=== PATIENT | male | born 1955 | race Caucasian/White ===

== ENCOUNTER 2023-03-22 11:51 | Inpatient (IN) | payer MEDICARE ==
[2023-03-22] MEDS ORDERED: Morphine 4 MG/ML VIAL ONE (12:50)
[2023-03-22] MEDS ORDERED: Vancomycin 1 GM VIAL ONE (12:50)
[2023-03-22 13:24] LABS: ALT (SGPT) 43 U/L (8-55); AST (SGOT) 35 U/L (5-34); Albumin 3.5 g/dL (3.4-4.8); Alkaline Phosphatase 109 U/L (40-110); Anion Gap 14 mmol/L (10-20); BUN (Urea Nitrogen) 30 mg/dL (8.4-25.7); Bilirubin, Total 0.8 mg/dL (0.2-1.2); Calc. Creatinine Clearance 0 mL/min (70-130); Calcium 9.4 mg/dL (7.8-10.44); Carbon Dioxide 26 mmol/L (23-31); Chloride 100 mmol/L (98-107); Estimated GFR 41; Globulin 4.1 g/dL (2.4-3.5); Glucose 243 mg/dL (80-115); Potassium 4.7 mmol/L (3.5-5.1); Protein, Total 7.6 g/dL (5.8-8.1); Sodium 135 mmol/L (136-145)
[2023-03-22 13:27] LABS: #Eosinphils 0.1 10x3/uL (0.0-0.5); #Monocytes 1.5 10x3/uL (0.0-1.1); #Neutrophils 9.5 10x3/uL (1.5-8.4); %Basophils 0.2 % (0.0-2.0); %Eosinophils 0.8 % (0.0-6.0); %Lymphocytes 13.9 % (18.0-47.0); %Monocytes 11.7 % (0.0-10.0); Hematocrit 41.3 % (38.8-50.0); Mean Corpuscular HGB CONC 33.9 g/dL (32.0-36.0); Mean Corpuscular Hemoglobin 31.1 pg (27.0-33.0); Mean Corpuscular Volume 91.8 fl (81.2-95.1); Mean Platelet Volume 11.2 fl (7.4-10.4); Platelet Count 224 10x3/uL (150-450); RBC Distribution Width 12.8 % (11.5-14.5)
[2023-03-22] MEDS ORDERED: Guaifenesin DM 100-10/5 ML UDCUP PO PRN (14:53)
[2023-03-22] MEDS ORDERED: Senokot S 8.6-50 MG TAB PO PRN (14:53)
[2023-03-22] MEDS ORDERED: Dextrose 5% in Water 1,000 ML IV PRN (15:18)
[2023-03-22] MEDS ORDERED: Dextrose 50% Abboject 50 ML SYRINGE SLOW IVP PRN (15:18)
[2023-03-22] MEDS ORDERED: Insulin Regular 300 UNITS/3 ML VIAL SC PRN (15:18)
[2023-03-22] MEDS ORDERED: Glucagon 1 MG/ML KIT IM PRN (15:18)
[2023-03-22] MEDS ORDERED: Piperacillin/Tazobactam 3.375 GM in Sodium Chloride 0.9% 100 ML IVPB SCH (16:00)
[2023-03-22 17:13] VITALS: BMI 30.9
[2023-03-22 17:22] LABS: Bilirubin Neg (Negative); Blood, Urine Negative (Negative); Clarity Clear (Clear); Glucose, Urine (Dipstick) 50 mg/dL (Negative); Ketone, Urine Negative (Negative); Leukocyte 500 (Negative); Nitrite Negative (Negative); Protein, Urine (Dipstick) 30 mg/dl (Neg-Trace); Specific Gravity, Urine 1.015 (1.005-1.030)
[2023-03-22] MEDS ORDERED: Vancomycin HCl 500 MG in Sodium Chloride 0.9% 100 ML IVPB SCH ×2 (17:30→20:00)
[2023-03-22 17:37] LABS: Bacteria/HPF 1+ HPF (None Seen); CAUTI Indications for Culture Fever or rigors; RBC/HPF 0-3 HPF (0-3); Squamous Epithelial 0-3 HPF (0-3); Transitional Epithelial 0-3 HPF (None Seen); WBC/HPF 21-50 HPF (0-3)
[2023-03-22 17:39] LABS: Urine Culture Reflex Yes Yes
[2023-03-22] MEDS: HYDROcodone/Acetaminophen 5/325 mg Tablet PO PRN (17:56)
[2023-03-22] MEDS: Sodium Chloride 0.9% 1,000 ML IV SCH (18:07)
[2023-03-22] MEDS ORDERED: Vancomycin (BATCH) 1.5 GM in Premix 1 BAG IVPB SCH (21:00)
[2023-03-22] MEDS ORDERED: Lantus 1000 UNITS/10 ML VIAL SC SCH (21:00)
[2023-03-22] MEDS: Famotidine 20 MG TAB PO SCH (21:25)
[2023-03-22] MEDS: Piperacillin/Tazobactam 3.375 GM in Sodium Chloride 0.9% 100 ML IVPB SCH (21:25)
[2023-03-23] MEDS: HYDROcodone/Acetaminophen 5/325 mg Tablet PO PRN ×2 (02:05→17:23)
[2023-03-23] MEDS: Piperacillin/Tazobactam 3.375 GM in Sodium Chloride 0.9% 100 ML IVPB SCH ×3 (03:27→20:01)
[2023-03-23] MEDS: Sodium Chloride 0.9% 1,000 ML IV SCH (04:06)
[2023-03-23 04:58] LABS: #Eosinphils 0.1 10x3/uL (0.0-0.5); #Monocytes 1.3 10x3/uL (0.0-1.1); #Neutrophils 8.1 10x3/uL (1.5-8.4); %Basophils 0.3 % (0.0-2.0); %Eosinophils 1.2 % (0.0-6.0); %Lymphocytes 17.1 % (18.0-47.0); %Monocytes 11.6 % (0.0-10.0); %Neutrophils 69.4 % (40.0-75.0); Hematocrit 36.7 % (38.8-50.0); Hemoglobin 12.6 g/dL (13.5-17.5); Mean Corpuscular HGB CONC 34.3 g/dL (32.0-36.0); Mean Corpuscular Hemoglobin 31.2 pg (27.0-33.0); Mean Corpuscular Volume 90.8 fl (81.2-95.1); Mean Platelet Volume 11.3 fl (7.4-10.4); Platelet Count 201 10x3/uL (150-450); RBC Distribution Width 12.8 % (11.5-14.5); Red Blood Cell (RBC) Count 4.04 10x6/uL (4.32-5.72); White Blood Cell (WBC) Count 11.6 10x3/uL (3.5-10.5)
[2023-03-23 05:03] LABS: ALT (SGPT) 34 U/L (8-55); AST (SGOT) 24 U/L (5-34); Albumin 2.8 g/dL (3.4-4.8); Alkaline Phosphatase 102 U/L (40-110); Anion Gap 14 mmol/L (10-20); BUN (Urea Nitrogen) 24 mg/dL (8.4-25.7); Bilirubin, Total 0.8 mg/dL (0.2-1.2); Calc. Creatinine Clearance 69 mL/min (70-130); Calcium 8.3 mg/dL (7.8-10.44); Carbon Dioxide 21 mmol/L (23-31); Chloride 103 mmol/L (98-107); Estimated GFR 49; Globulin 3.5 g/dL (2.4-3.5); Glucose 179 mg/dL (80-115); Potassium 4.1 mmol/L (3.5-5.1); Protein, Total 6.3 g/dL (5.8-8.1); Sodium 134 mmol/L (136-145)
[2023-03-23] MEDS: HumaLOG 300 UNITS/3 ML VIAL SC PRN ×2 (08:45→12:09)
[2023-03-23] MEDS: Gabapentin 300 MG CAP PO PRN ×2 (08:47→17:32)
[2023-03-23] MEDS: Lisinopril 20 MG TAB PO SCH (08:48)
[2023-03-23] MEDS: cloNIDine 0.1 MG TAB PO SCH (08:48)
[2023-03-23] MEDS: Saccharomyces boulardii 250 MG CAP PO SCH (08:48)
[2023-03-23] MEDS: Famotidine 20 MG TAB PO SCH ×2 (08:48→20:01)
[2023-03-23] MEDS: Acetaminophen 325 MG TAB PO PRN ×2 (08:49→20:01)
[2023-03-23] MEDS ORDERED: Lantus 1000 UNITS/10 ML VIAL SC SCH (09:00)
[2023-03-23] MEDS ORDERED: CHONDR SU A SOD PO SCH (09:00)
[2023-03-23] MEDS ORDERED: GLUCOSAMINE PO SCH (09:00)
[2023-03-23] MEDS ORDERED: [UNRECOGNIZED DRUG - OTHER] PO SCH (09:00)
[2023-03-23] MEDS ORDERED: INSULIN GLARGINE SC SCH (11:30)
[2023-03-23] MEDS: INSULIN GLARGINE SC SCH ×2 (11:48→19:59)
[2023-03-23] MEDS ORDERED: Vancomycin 1.5 GRAM/300 ML BAG 1.5 GM in Premix 1 BAG IVPB SCH (13:00)
[2023-03-24] MEDS: Piperacillin/Tazobactam 3.375 GM in Sodium Chloride 0.9% 100 ML IVPB SCH ×3 (03:37→21:12)
[2023-03-24] MEDS: Sodium Chloride 0.9% 1,000 ML IV SCH (03:38)
[2023-03-24 05:49] LABS: #Basophils 0.1 10x3/uL (0.0-0.2); #Eosinphils 0.2 10x3/uL (0.0-0.5); #Monocytes 1.7 10x3/uL (0.0-1.1); #Neutrophils 9.4 10x3/uL (1.5-8.4); %Basophils 0.4 % (0.0-2.0); %Eosinophils 1.6 % (0.0-6.0); %Lymphocytes 11.6 % (18.0-47.0); %Monocytes 13.1 % (0.0-10.0); %Neutrophils 72.8 % (40.0-75.0); Hematocrit 37.1 % (38.8-50.0); Hemoglobin 12.6 g/dL (13.5-17.5); Mean Corpuscular Hemoglobin 30.9 pg (27.0-33.0); Mean Corpuscular Volume 90.9 fl (81.2-95.1); Mean Platelet Volume 10.8 fl (7.4-10.4); Platelet Count 231 10x3/uL (150-450); RBC Distribution Width 12.5 % (11.5-14.5); Red Blood Cell (RBC) Count 4.08 10x6/uL (4.32-5.72); White Blood Cell (WBC) Count 12.8 10x3/uL (3.5-10.5)
[2023-03-24 05:55] LABS: Anion Gap 14 mmol/L (10-20); BUN (Urea Nitrogen) 23 mg/dL (8.4-25.7); Calc. Creatinine Clearance 72 mL/min (70-130); Calcium 8.6 mg/dL (7.8-10.44); Carbon Dioxide 22 mmol/L (23-31); Chloride 101 mmol/L (98-107); Estimated GFR 51; Glucose 240 mg/dL (80-115); Potassium 4.2 mmol/L (3.5-5.1); Sodium 133 mmol/L (136-145)
[2023-03-24] MEDS: HYDROcodone/Acetaminophen 5/325 mg Tablet PO PRN (07:27)
[2023-03-24] MEDS: cloNIDine 0.1 MG TAB PO SCH (10:07)
[2023-03-24] MEDS: Saccharomyces boulardii 250 MG CAP PO SCH (10:07)
[2023-03-24] MEDS: Lisinopril 20 MG TAB PO SCH (10:07)
[2023-03-24] MEDS: Famotidine 20 MG TAB PO SCH ×2 (10:07→21:12)
[2023-03-24] MEDS ORDERED: Nystatin Powder 15 GM BOT TOP PRN (10:17)
[2023-03-24] MEDS: INSULIN GLARGINE SC SCH ×2 (12:04→21:14)
[2023-03-24] MEDS: HumaLOG 300 UNITS/3 ML VIAL SC PRN ×3 (12:07→21:28)
[2023-03-24] MEDS: Vancomycin 1.5 GRAM/300 ML BAG 1.5 GM in Premix 1 BAG IVPB SCH (16:13)
[2023-03-24] MEDS ORDERED: Morphine 2 MG/ML VIAL SLOW IVP SCH (16:30)
[2023-03-24] MEDS: Acetaminophen 325 MG TAB PO PRN (16:33)
[2023-03-24] MEDS: Ketorolac Tromethamine 30 MG/ML VIAL IVP SCH (18:22)
[2023-03-25] MEDS: Vancomycin 1.5 GRAM/300 ML BAG 1.5 GM in Premix 1 BAG IVPB SCH ×2 (01:19→17:47)
[2023-03-25] MEDS: HYDROcodone/Acetaminophen 5/325 mg Tablet PO PRN ×3 (03:48→15:34)
[2023-03-25] MEDS: Piperacillin/Tazobactam 3.375 GM in Sodium Chloride 0.9% 100 ML IVPB SCH ×3 (04:44→20:18)
[2023-03-25] MEDS: Acetaminophen 325 MG TAB PO PRN (04:50)
[2023-03-25 05:15] LABS: #Eosinphils 0.3 10x3/uL (0.0-0.5); #Monocytes 1.4 10x3/uL (0.0-1.1); #Neutrophils 7.4 10x3/uL (1.5-8.4); %Basophils 0.3 % (0.0-2.0); %Eosinophils 2.7 % (0.0-6.0); %Lymphocytes 11.5 % (18.0-47.0); %Monocytes 13.4 % (0.0-10.0); %Neutrophils 71.5 % (40.0-75.0); Hematocrit 37.1 % (38.8-50.0); Hemoglobin 12.8 g/dL (13.5-17.5); Mean Corpuscular HGB CONC 34.5 g/dL (32.0-36.0); Mean Corpuscular Hemoglobin 31.4 pg (27.0-33.0); Mean Corpuscular Volume 91.2 fl (81.2-95.1); Mean Platelet Volume 10.9 fl (7.4-10.4); Platelet Count 221 10x3/uL (150-450); RBC Distribution Width 12.5 % (11.5-14.5); Red Blood Cell (RBC) Count 4.07 10x6/uL (4.32-5.72); White Blood Cell (WBC) Count 10.4 10x3/uL (3.5-10.5)
[2023-03-25 05:24] LABS: Anion Gap 15 mmol/L (10-20); BUN (Urea Nitrogen) 26 mg/dL (8.4-25.7); Calc. Creatinine Clearance 75 mL/min (70-130); Calcium 8.5 mg/dL (7.8-10.44); Carbon Dioxide 23 mmol/L (23-31); Chloride 100 mmol/L (98-107); Estimated GFR 54; Glucose 215 mg/dL (80-115); Potassium 4.3 mmol/L (3.5-5.1); Sodium 134 mmol/L (136-145)
[2023-03-25] MEDS: HumaLOG 300 UNITS/3 ML VIAL SC PRN ×4 (06:34→20:22)
[2023-03-25] MEDS: Lisinopril 20 MG TAB PO SCH (08:32)
[2023-03-25] MEDS: cloNIDine 0.1 MG TAB PO SCH ×2 (08:33→20:18)
[2023-03-25] MEDS: Famotidine 20 MG TAB PO SCH ×2 (08:33→20:18)
[2023-03-25] MEDS: Saccharomyces boulardii 250 MG CAP PO SCH (08:33)
[2023-03-25] MEDS: INSULIN GLARGINE SC SCH ×2 (08:37→20:20)
[2023-03-25] MEDS: Sodium Chloride 0.9% 1,000 ML IV SCH (10:59)
[2023-03-25] MEDS: Gabapentin 300 MG CAP PO PRN (17:45)
[2023-03-25] MEDS: Morphine 2 MG/ML VIAL SLOW IVP PRN (18:15)
[2023-03-25] MEDS: Ketorolac Tromethamine 30 MG/ML VIAL IVP SCH (19:06)
[2023-03-26] MEDS: Sodium Chloride 0.9% 1,000 ML IV SCH ×2 (00:13→12:56)
[2023-03-26 00:50] LABS: Vancomycin, Trough 23.5 ug/mL
[2023-03-26] MEDS: VANCOMYCIN 1.25 GM/250 ML BAG 1.25 GM in Premix 1 BAG IVPB SCH ×2 (01:05→12:17)
[2023-03-26] MEDS: Acetaminophen 325 MG TAB PO PRN (01:06)
[2023-03-26] MEDS: Piperacillin/Tazobactam 3.375 GM in Sodium Chloride 0.9% 100 ML IVPB SCH ×3 (03:54→12:25)
[2023-03-26 05:37] LABS: #Basophils 0.1 10x3/uL (0.0-0.2); #Eosinphils 0.3 10x3/uL (0.0-0.5); #Monocytes 1.2 10x3/uL (0.0-1.1); %Basophils 0.5 % (0.0-2.0); %Eosinophils 3.2 % (0.0-6.0); %Lymphocytes 18.7 % (18.0-47.0); %Monocytes 11.5 % (0.0-10.0); %Neutrophils 65.4 % (40.0-75.0); Hematocrit 34.3 % (38.8-50.0); Hemoglobin 11.9 g/dL (13.5-17.5); Mean Corpuscular HGB CONC 34.7 g/dL (32.0-36.0); Mean Corpuscular Hemoglobin 31.6 pg (27.0-33.0); Mean Corpuscular Volume 91.2 fl (81.2-95.1); Mean Platelet Volume 10.9 fl (7.4-10.4); Platelet Count 234 10x3/uL (150-450); RBC Distribution Width 12.7 % (11.5-14.5); Red Blood Cell (RBC) Count 3.76 10x6/uL (4.32-5.72); White Blood Cell (WBC) Count 10.6 10x3/uL (3.5-10.5)
[2023-03-26 05:54] LABS: Anion Gap 14 mmol/L (10-20); BUN (Urea Nitrogen) 21 mg/dL (8.4-25.7); Calc. Creatinine Clearance 85 mL/min (70-130); Calcium 8.6 mg/dL (7.8-10.44); Carbon Dioxide 21 mmol/L (23-31); Chloride 105 mmol/L (98-107); Estimated GFR 63; Glucose 101 mg/dL (80-115); Potassium 4.2 mmol/L (3.5-5.1); Sodium 136 mmol/L (136-145)
[2023-03-26] MEDS: Morphine 2 MG/ML VIAL SLOW IVP PRN (09:42)
[2023-03-26] MEDS: Famotidine 20 MG TAB PO SCH ×2 (09:43→20:31)
[2023-03-26] MEDS: cloNIDine 0.1 MG TAB PO SCH ×2 (09:43→20:30)
[2023-03-26] MEDS: Saccharomyces boulardii 250 MG CAP PO SCH (09:43)
[2023-03-26] MEDS: Lisinopril 20 MG TAB PO SCH (09:43)
[2023-03-26] MEDS: INSULIN GLARGINE SC SCH ×2 (09:44→21:00)
[2023-03-26] MEDS: HYDROcodone/Acetaminophen 5/325 mg Tablet PO PRN (12:22)
[2023-03-26] MEDS ORDERED: NIFEdipine XL 30 MG ER.TAB PO SCH (15:30)
[2023-03-26] MEDS: Hydrocodone-Acetamin 15 ML UDCUP PO PRN ×2 (16:18→20:29)
[2023-03-26] MEDS: Ketorolac Tromethamine 30 MG/ML VIAL IVP SCH (18:29)
[2023-03-26] MEDS: HumaLOG 300 UNITS/3 ML VIAL SC PRN (20:42)
[2023-03-26] MEDS: Cefepime 2 GM in Sodium Chloride 0.9% 100 ML IVPB SCH (20:48)
[2023-03-27] MEDS: diphenhydrAMINE 25 MG CAP PO PRN ×2 (00:53→09:28)
[2023-03-27] MEDS: VANCOMYCIN 1.25 GM/250 ML BAG 1.25 GM in Premix 1 BAG IVPB SCH (01:02)
[2023-03-27] MEDS ORDERED: Prochlorperazine 10 MG/2 ML VIAL IVP SCH (02:30)
[2023-03-27 05:13] LABS: #Eosinphils 0.3 10x3/uL (0.0-0.5); #Monocytes 1.2 10x3/uL (0.0-1.1); #Neutrophils 7.4 10x3/uL (1.5-8.4); %Basophils 0.3 % (0.0-2.0); %Eosinophils 2.6 % (0.0-6.0); %Lymphocytes 16.3 % (18.0-47.0); %Neutrophils 68.9 % (40.0-75.0); Hematocrit 36.7 % (38.8-50.0); Hemoglobin 12.3 g/dL (13.5-17.5); Mean Corpuscular HGB CONC 33.5 g/dL (32.0-36.0); Mean Corpuscular Hemoglobin 31.1 pg (27.0-33.0); Mean Corpuscular Volume 92.9 fl (81.2-95.1); Mean Platelet Volume 10.7 fl (7.4-10.4); Platelet Count 255 10x3/uL (150-450); RBC Distribution Width 12.5 % (11.5-14.5); Red Blood Cell (RBC) Count 3.95 10x6/uL (4.32-5.72); White Blood Cell (WBC) Count 10.7 10x3/uL (3.5-10.5)
[2023-03-27 05:28] LABS: Anion Gap 13 mmol/L (10-20); BUN (Urea Nitrogen) 20 mg/dL (8.4-25.7); Calc. Creatinine Clearance 86 mL/min (70-130); Calcium 8.6 mg/dL (7.8-10.44); Carbon Dioxide 25 mmol/L (23-31); Chloride 101 mmol/L (98-107); Estimated GFR 64; Glucose 187 mg/dL (80-115); Potassium 4.2 mmol/L (3.5-5.1); Sodium 135 mmol/L (136-145)
[2023-03-27] MEDS: Hydrocodone-Acetamin 15 ML UDCUP PO PRN ×2 (07:30→13:41)
[2023-03-27] MEDS: Cefepime 2 GM in Sodium Chloride 0.9% 100 ML IVPB SCH ×2 (09:23→21:52)
[2023-03-27] MEDS: Saccharomyces boulardii 250 MG CAP PO SCH (09:24)
[2023-03-27] MEDS: cloNIDine 0.1 MG TAB PO SCH ×2 (09:24→20:37)
[2023-03-27] MEDS: Allopurinol 100 MG TAB PO SCH (09:25)
[2023-03-27] MEDS: NIFEdipine XL 30 MG ER.TAB PO SCH (09:26)
[2023-03-27] MEDS: Famotidine 20 MG TAB PO SCH ×2 (09:26→20:37)
[2023-03-27] MEDS: Lisinopril 20 MG TAB PO SCH (09:26)
[2023-03-27] MEDS: INSULIN GLARGINE SC SCH ×2 (09:32→20:33)
[2023-03-27 12:18] LABS: Vancomycin, Trough 20.8 ug/mL
[2023-03-27] MEDS: HumaLOG 300 UNITS/3 ML VIAL SC PRN (17:13)
[2023-03-27] MEDS: Vancomycin 1 GM in Sodium Chloride 0.9% 250 ML 250 ML IVPB SCH (20:36)
[2023-03-27] MEDS: Gabapentin 300 MG CAP PO PRN (21:35)
[2023-03-27] MEDS ORDERED: Prochlorperazine Maleate 5 MG TAB PO SCH (22:00)
[2023-03-28] MEDS: Ketorolac Tromethamine 30 MG/ML VIAL IVP SCH (00:07)
[2023-03-28] MEDS: Baclofen 10 MG TAB PO SCH ×3 (00:15→17:26)
[2023-03-28 05:49] LABS: #Basophils 0.1 10x3/uL (0.0-0.2); #Eosinphils 0.3 10x3/uL (0.0-0.5); #Monocytes 1.1 10x3/uL (0.0-1.1); #Neutrophils 6.6 10x3/uL (1.5-8.4); %Basophils 0.5 % (0.0-2.0); %Eosinophils 3.1 % (0.0-6.0); %Lymphocytes 19.7 % (18.0-47.0); %Monocytes 10.6 % (0.0-10.0); %Neutrophils 64.7 % (40.0-75.0); Hematocrit 35.9 % (38.8-50.0); Hemoglobin 12.1 g/dL (13.5-17.5); Mean Corpuscular HGB CONC 33.7 g/dL (32.0-36.0); Mean Corpuscular Hemoglobin 30.6 pg (27.0-33.0); Mean Corpuscular Volume 90.9 fl (81.2-95.1); Mean Platelet Volume 10.7 fl (7.4-10.4); Platelet Count 287 10x3/uL (150-450); RBC Distribution Width 12.5 % (11.5-14.5); Red Blood Cell (RBC) Count 3.95 10x6/uL (4.32-5.72); White Blood Cell (WBC) Count 10.2 10x3/uL (3.5-10.5)
[2023-03-28 06:00] LABS: Anion Gap 14 mmol/L (10-20); BUN (Urea Nitrogen) 22 mg/dL (8.4-25.7); Calc. Creatinine Clearance 86 mL/min (70-130); Calcium 8.5 mg/dL (7.8-10.44); Carbon Dioxide 24 mmol/L (23-31); Chloride 102 mmol/L (98-107); Estimated GFR 64; Glucose 171 mg/dL (80-115); Potassium 4.1 mmol/L (3.5-5.1); Sodium 136 mmol/L (136-145)
[2023-03-28] MEDS: HumaLOG 300 UNITS/3 ML VIAL SC PRN ×4 (06:35→21:37)
[2023-03-28] MEDS: Vancomycin 1 GM in Sodium Chloride 0.9% 250 ML 250 ML IVPB SCH ×2 (09:24→21:30)
[2023-03-28] MEDS: Famotidine 20 MG TAB PO SCH ×2 (09:30→21:30)
[2023-03-28] MEDS: NIFEdipine XL 30 MG ER.TAB PO SCH (09:30)
[2023-03-28] MEDS: cloNIDine 0.1 MG TAB PO SCH ×2 (09:31→21:30)
[2023-03-28] MEDS: Lisinopril 20 MG TAB PO SCH (09:31)
[2023-03-28] MEDS: Allopurinol 100 MG TAB PO SCH (09:31)
[2023-03-28] MEDS: Saccharomyces boulardii 250 MG CAP PO SCH (09:31)
[2023-03-28] MEDS: INSULIN GLARGINE SC SCH ×2 (09:35→21:47)
[2023-03-28] MEDS: Cefepime 2 GM in Sodium Chloride 0.9% 100 ML IVPB SCH ×2 (11:30→22:42)
[2023-03-28] MEDS: HYDROcodone/Acetaminophen 5/325 mg Tablet PO PRN ×2 (14:40→18:40)
[2023-03-29] MEDS: Baclofen 10 MG TAB PO SCH ×3 (02:30→17:55)
[2023-03-29 03:37] LABS: #Basophils 0.1 10x3/uL (0.0-0.2); #Eosinphils 0.3 10x3/uL (0.0-0.5); #Monocytes 1.2 10x3/uL (0.0-1.1); #Neutrophils 7.4 10x3/uL (1.5-8.4); %Basophils 0.6 % (0.0-2.0); %Lymphocytes 17.3 % (18.0-47.0); %Monocytes 10.5 % (0.0-10.0); %Neutrophils 66.5 % (40.0-75.0); Hematocrit 36.5 % (38.8-50.0); Hemoglobin 12.4 g/dL (13.5-17.5); Mean Corpuscular Hemoglobin 31.2 pg (27.0-33.0); Mean Corpuscular Volume 91.9 fl (81.2-95.1); Platelet Count 292 10x3/uL (150-450); RBC Distribution Width 12.2 % (11.5-14.5); Red Blood Cell (RBC) Count 3.97 10x6/uL (4.32-5.72); White Blood Cell (WBC) Count 11.2 10x3/uL (3.5-10.5)
[2023-03-29 03:42] LABS: Anion Gap 13 mmol/L (10-20); BUN (Urea Nitrogen) 22 mg/dL (8.4-25.7); Calc. Creatinine Clearance 83 mL/min (70-130); Calcium 8.5 mg/dL (7.8-10.44); Carbon Dioxide 26 mmol/L (23-31); Chloride 99 mmol/L (98-107); Estimated GFR 62; Glucose 238 mg/dL (80-115); Potassium 4.4 mmol/L (3.5-5.1); Sodium 134 mmol/L (136-145)
[2023-03-29] MEDS: HumaLOG 300 UNITS/3 ML VIAL SC PRN ×4 (06:36→21:16)
[2023-03-29 07:31] LABS: Vancomycin, Trough 15.3 ug/mL
[2023-03-29] MEDS: Allopurinol 100 MG TAB PO SCH (08:10)
[2023-03-29] MEDS: Famotidine 20 MG TAB PO SCH ×2 (08:13→21:01)
[2023-03-29] MEDS: cloNIDine 0.1 MG TAB PO SCH ×2 (08:13→21:01)
[2023-03-29] MEDS: NIFEdipine XL 30 MG ER.TAB PO SCH (08:13)
[2023-03-29] MEDS: Saccharomyces boulardii 250 MG CAP PO SCH (08:13)
[2023-03-29] MEDS: Lisinopril 20 MG TAB PO SCH (08:14)
[2023-03-29] MEDS: Vancomycin 1 GM in Sodium Chloride 0.9% 250 ML 250 ML IVPB SCH ×2 (08:15→21:00)
[2023-03-29] MEDS: INSULIN GLARGINE SC SCH ×2 (08:21→21:21)
[2023-03-29] MEDS: Cefepime 2 GM in Sodium Chloride 0.9% 100 ML IVPB SCH ×2 (09:45→22:15)
[2023-03-29] MEDS: HYDROcodone/Acetaminophen 5/325 mg Tablet PO PRN (11:57)
[2023-03-29] MEDS: diphenhydrAMINE 25 MG CAP PO PRN (23:53)
[2023-03-30] MEDS: Baclofen 10 MG TAB PO SCH ×3 (02:56→17:32)
[2023-03-30 03:38] LABS: Anion Gap 13 mmol/L (10-20); BUN (Urea Nitrogen) 20 mg/dL (8.4-25.7); Calc. Creatinine Clearance 80 mL/min (70-130); Calcium 8.4 mg/dL (7.8-10.44); Carbon Dioxide 26 mmol/L (23-31); Chloride 101 mmol/L (98-107); Estimated GFR 59; Glucose 184 mg/dL (80-115); Potassium 4.1 mmol/L (3.5-5.1); Sodium 136 mmol/L (136-145)
[2023-03-30 03:56] LABS: #Basophils 0.1 10x3/uL (0.0-0.2); #Eosinphils 0.3 10x3/uL (0.0-0.5); #Neutrophils 8.1 10x3/uL (1.5-8.4); %Basophils 0.5 % (0.0-2.0); %Eosinophils 2.9 % (0.0-6.0); %Lymphocytes 17.2 % (18.0-47.0); %Monocytes 8.8 % (0.0-10.0); %Neutrophils 68.6 % (40.0-75.0); Hematocrit 34.2 % (38.8-50.0); Hemoglobin 11.6 g/dL (13.5-17.5); Mean Corpuscular HGB CONC 33.9 g/dL (32.0-36.0); Mean Corpuscular Volume 91.4 fl (81.2-95.1); Mean Platelet Volume 10.7 fl (7.4-10.4); Platelet Count 341 10x3/uL (150-450); RBC Distribution Width 12.6 % (11.5-14.5); Red Blood Cell (RBC) Count 3.74 10x6/uL (4.32-5.72); White Blood Cell (WBC) Count 11.8 10x3/uL (3.5-10.5)
[2023-03-30] MEDS: Allopurinol 100 MG TAB PO SCH (08:53)
[2023-03-30] MEDS: Vancomycin 1 GM in Sodium Chloride 0.9% 250 ML 250 ML IVPB SCH ×2 (08:53→20:49)
[2023-03-30] MEDS: Lisinopril 20 MG TAB PO SCH (08:54)
[2023-03-30] MEDS: NIFEdipine XL 30 MG ER.TAB PO SCH (08:55)
[2023-03-30] MEDS: cloNIDine 0.1 MG TAB PO SCH ×2 (08:55→20:51)
[2023-03-30] MEDS: Famotidine 20 MG TAB PO SCH ×2 (08:55→20:51)
[2023-03-30] MEDS: Saccharomyces boulardii 250 MG CAP PO SCH (08:57)
[2023-03-30] MEDS: INSULIN GLARGINE SC SCH ×2 (08:57→21:18)
[2023-03-30] MEDS: diphenhydrAMINE 25 MG CAP PO PRN ×2 (09:14→21:15)
[2023-03-30] MEDS ORDERED: NIFEdipine XL 30 MG ER.TAB PO SCH (09:15)
[2023-03-30] MEDS: Cefepime 2 GM in Sodium Chloride 0.9% 100 ML IVPB SCH ×2 (09:58→20:50)
[2023-03-30] MEDS: Hydrocodone-Acetamin 15 ML UDCUP PO PRN (15:30)
[2023-03-30] MEDS: HumaLOG 300 UNITS/3 ML VIAL SC PRN (17:25)
[2023-03-31] MEDS: Baclofen 10 MG TAB PO SCH ×2 (01:50→09:41)
[2023-03-31 03:57] LABS: #Basophils 0.1 10x3/uL (0.0-0.2); #Eosinphils 0.5 10x3/uL (0.0-0.5); #Monocytes 1.3 10x3/uL (0.0-1.1); #Neutrophils 8.4 10x3/uL (1.5-8.4); %Basophils 0.7 % (0.0-2.0); %Eosinophils 3.6 % (0.0-6.0); %Lymphocytes 18.7 % (18.0-47.0); %Monocytes 9.6 % (0.0-10.0); %Neutrophils 63.5 % (40.0-75.0); Hematocrit 35.7 % (38.8-50.0); Mean Corpuscular HGB CONC 33.6 g/dL (32.0-36.0); Mean Corpuscular Hemoglobin 30.8 pg (27.0-33.0); Mean Corpuscular Volume 91.5 fl (81.2-95.1); Mean Platelet Volume 10.5 fl (7.4-10.4); Platelet Count 388 10x3/uL (150-450); RBC Distribution Width 12.5 % (11.5-14.5); White Blood Cell (WBC) Count 13.2 10x3/uL (3.5-10.5)
[2023-03-31 04:13] LABS: Anion Gap 14 mmol/L (10-20); BUN (Urea Nitrogen) 21 mg/dL (8.4-25.7); Calc. Creatinine Clearance 91 mL/min (70-130); Calcium 8.8 mg/dL (7.8-10.44); Carbon Dioxide 25 mmol/L (23-31); Chloride 100 mmol/L (98-107); Estimated GFR 69; Glucose 132 mg/dL (80-115); Potassium 4.1 mmol/L (3.5-5.1); Sodium 135 mmol/L (136-145)
[2023-03-31] MEDS: cloNIDine 0.1 MG TAB PO SCH ×2 (05:59→21:34)
[2023-03-31] MEDS: Lisinopril 20 MG TAB PO SCH (06:00)
[2023-03-31] MEDS: Famotidine 20 MG TAB PO SCH ×2 (09:40→21:34)
[2023-03-31] MEDS: Saccharomyces boulardii 250 MG CAP PO SCH (09:40)
[2023-03-31] MEDS: NIFEdipine XL 90 MG ER.TAB PO SCH (09:41)
[2023-03-31] MEDS: Allopurinol 100 MG TAB PO SCH (09:41)
[2023-03-31] MEDS: Cefepime 2 GM in Sodium Chloride 0.9% 100 ML IVPB SCH ×2 (09:43→21:34)
[2023-03-31] MEDS: INSULIN GLARGINE SC SCH ×2 (09:46→21:36)
[2023-03-31] MEDS: VANCOMYCIN 1.25 GM/250 ML BAG 1.25 GM in Premix 1 BAG IVPB SCH ×2 (09:48→22:37)
[2023-03-31] MEDS ORDERED: Iopamidol 300 61% 100 ML VIAL FS ONE (12:39)
[2023-03-31] MEDS: HumaLOG 300 UNITS/3 ML VIAL SC PRN ×2 (12:39→21:36)
[2023-03-31] MEDS: Hydrocodone-Acetamin 15 ML UDCUP PO PRN (22:34)
[2023-04-01] MEDS: Baclofen 10 MG TAB PO SCH ×3 (00:22→09:14)
[2023-04-01 04:17] LABS: #Basophils 0.1 10x3/uL (0.0-0.2); #Eosinphils 0.4 10x3/uL (0.0-0.5); #Monocytes 1.3 10x3/uL (0.0-1.1); #Neutrophils 8.6 10x3/uL (1.5-8.4); %Basophils 0.9 % (0.0-2.0); %Lymphocytes 19.4 % (18.0-47.0); %Monocytes 9.5 % (0.0-10.0); %Neutrophils 63.1 % (40.0-75.0); Hematocrit 35.9 % (38.8-50.0); Hemoglobin 12.2 g/dL (13.5-17.5); Mean Corpuscular Hemoglobin 31.2 pg (27.0-33.0); Mean Corpuscular Volume 91.8 fl (81.2-95.1); Platelet Count 407 10x3/uL (150-450); RBC Distribution Width 12.4 % (11.5-14.5); Red Blood Cell (RBC) Count 3.91 10x6/uL (4.32-5.72); White Blood Cell (WBC) Count 13.6 10x3/uL (3.5-10.5)
[2023-04-01 04:28] LABS: Anion Gap 14 mmol/L (10-20); BUN (Urea Nitrogen) 27 mg/dL (8.4-25.7); Calc. Creatinine Clearance 69 mL/min (70-130); Calcium 8.6 mg/dL (7.8-10.44); Carbon Dioxide 24 mmol/L (23-31); Chloride 100 mmol/L (98-107); Estimated GFR 49; Glucose 216 mg/dL (80-115); Potassium 3.9 mmol/L (3.5-5.1); Sodium 134 mmol/L (136-145)
[2023-04-01] MEDS: INSULIN GLARGINE SC SCH (09:10)
[2023-04-01] MEDS: VANCOMYCIN 1.25 GM/250 ML BAG 1.25 GM in Premix 1 BAG IVPB SCH (09:11)
[2023-04-01] MEDS: Cefepime 2 GM in Sodium Chloride 0.9% 100 ML IVPB SCH (09:11)
[2023-04-01] MEDS: cloNIDine 0.1 MG TAB PO SCH (09:12)
[2023-04-01] MEDS: Saccharomyces boulardii 250 MG CAP PO SCH (09:13)
[2023-04-01] MEDS: Famotidine 20 MG TAB PO SCH (09:14)
[2023-04-01] MEDS: Lisinopril 20 MG TAB PO SCH (09:14)
[2023-04-01] MEDS: Allopurinol 100 MG TAB PO SCH (09:14)
[2023-04-01] MEDS: NIFEdipine XL 90 MG ER.TAB PO SCH (09:15)
[2023-04-01 10:05] VITALS: BP 148/70; TEMP 98.1
== END 2023-04-01 12:07 | disposition short-term general hospital (02) | DRG 872 ==
LOC: CSHERS 11:51 → CSHTELE 14:25
PROVIDERS: ADMIT Hospitalist; ATTEND Internal Medicine
DX: A41.9 Sepsis, unspecified organism (principal); L03.115 Cellulitis of right lower limb; N17.9 Acute kidney failure, unspecified; E11.628 Type 2 diabetes mellitus with other skin complications; Z88.8 Allergy status to other drugs, medicaments and biological substances; Z79.899 Other long term (current) drug therapy; Z87.891 Personal history of nicotine dependence; K21.9 Gastro-esophageal reflux disease without esophagitis; Z83.3 Family history of diabetes mellitus; N18.30 Chronic kidney disease, stage 3 unspecified; I12.9 Hypertensive chronic kidney disease with stage 1 through stage 4 chronic kidney disease, or unspecified chronic kidney disease; E11.22 Type 2 diabetes mellitus with diabetic chronic kidney disease; E11.65 Type 2 diabetes mellitus with hyperglycemia; B37.2 Candidiasis of skin and nail; E11.42 Type 2 diabetes mellitus with diabetic polyneuropathy; Z89.421 Acquired absence of other right toe(s)
CPT/HCPCS: 36415; 36416; 72192; 80048; 80053; 80202; 81001; 83605; 85025; 86140; 87040; 87086; 93005; 93923; 94660; 96365; 96366; 96375; J0692; J1650; J1815; J1885; J2270; J2272; J2543; J3370; J3490; J7050; Q0164; Q9967